=== PATIENT | male | born 1980 | race Caucasian/White ===

== ENCOUNTER → 2016-07-12 | Outpatient (CLI) | payer OTHER ==
--- NOTE | 2016-07-12 11:53 | DIAGNOSTIC IMAGING REPORT ---
CHEST 2 VIEWS ROUTINE CLINICAL HISTORY: Mid back pain on left side COMPARISON STUDY: 08/05/2011 FINDINGS: The cardiac and mediastinal contours are normal. There is no evidence of focal pulmonary consolidation. There is no evidence of failure. No pleural effusions are visualized.[ IMPRESSION: No active disease in the chest. Electronically signed by: Dharmesh Tidwell M.D. 07/12/2016 11:51 AM Dictated Date/Time: 07/12/2016 11:51 AM
[2016-07-12 14:42] LABS: HEMATOCRIT 44.2 % (42-52); MEAN CELL VOLUME 92.3 fL (80-100); MEAN CORPUSCULAR HEMOGLOBIN 31.1 pg (25-34); MEAN CORPUSCULAR HGB CONC 33.7 g/dl (32-36); MEAN PLATELET VOLUME 9.8 fL (7.4-10.4); PLATELET COUNT 222 K/uL (130-400); RED BLOOD COUNT 4.79 M/uL (4.7-6.1); WHITE BLOOD COUNT 7.61 K/uL (4.8-10.8)
[2016-07-12 14:47] LABS: URINE APPEARANCE CLEAR (CLEAR); URINE BILIRUBIN NEG (NEG); URINE COLOR YELLOW; URINE EPITHELIAL CELL AUTO 0-5 /lpf (0-5); URINE NITRITE NEG (NEG); URINE PH 5.5 (4.5-7.5); URINE SPECIFIC GRAVITY 1.028 (1.000-1.030); UROBILINOGEN NEG (NEG)
[2016-07-12 14:55] LABS: ALT/SGPT 46 U/L (12-78); AST/SGOT 24 U/L (15-37); BLOOD UREA NITROGEN 16 mg/dl (7-18); BUN/CREATININE RATIO 17.2 (10-20); CARBON DIOXIDE 30 mmol/L (21-32); CHLORIDE 105 mmol/L (98-107); CREATININE 0.92 mg/dl (0.60-1.40); GLUCOSE 106 mg/dl (70-99); POTASSIUM 4.4 mmol/L (3.5-5.1); SODIUM 139 mmol/L (136-145)
[2016-07-12 14:55] LABS: MANUAL MICROSCOPIC REQUIRED? NO; REVIEW REQ? NO
[2016-07-12 14:57] LABS: ALB/GLOB RATIO 1.2 (0.9-2); ALKALINE PHOSPHATASE 73 U/L (45-117)
== END | disposition home or self-care (01) ==
LOC: C.LABBC 11:23
PROVIDERS: ATTEND Internal Medicine
DX: M54.9 Dorsalgia, unspecified (principal)

== ENCOUNTER 2016-10-31 13:36 | Emergency (ER) | payer OTHER ==
[~2016-10-31] VITALS: Ht 193 cm; Wt 131.6 kg
[2016-10-31 13:39] VITALS: BP 140/73; PULSE 60; TEMP 36.7; O2SAT 100; Ht 193 cm; Wt 131.6 kg
[2016-10-31] MEDS ORDERED: XYLOCAINE 1%/SOD BICARB 20 ML VIAL INFIL ONE (13:57)
--- NOTE | 2016-10-31 14:35 | DIAGNOSTIC IMAGING REPORT ---
LEFT FINGER(S) MIN 2 VIEWS ROUTINE HISTORY: 36 years-old Male acute laceration of the left second digit. Follow-up exam. COMPARISON: Radiographs dated 08/25/2014. TECHNIQUE: 3 views of the left second digit. FINDINGS: There is a chronic bony defects noted involving the radial aspect of the second distal phalangeal tuft which is unchanged from comparison. No acute fracture or dislocation is identified. There is moderate soft tissue swelling of the second digit with focus of subcutaneous emphysema along the volar aspect of the finger adjacent to the PIP joint suggesting laceration. No underlying acute fracture or radiographic foreign body. Chronic 4 mm radiopaque foreign body is present within the soft tissues adjacent to the second metacarpophalangeal joint, also unchanged. IMPRESSION: 1. Soft tissue swelling and laceration of the second digit without fracture. 2. Chronic radiopaque foreign body adjacent to the second metacarpophalangeal joint, 4 mm. 3. Remote bony defect of the second distal flannel tuft. The above report was generated using voice recognition software. It may contain grammatical, syntax or spelling errors. Electronically signed by: David Castro M.D. 10/31/2016 2:34 PM Dictated Date/Time: 10/31/2016 2:31 PM
[2016-10-31] MEDS ORDERED: DIPHTHERIA/TETANUS/PERTUSSIS 0.5 ML SYR/VIAL IM. ONE (15:30)
--- NOTE | 2016-10-31 15:59 | EMERGENCY ROOM VISIT NOTE ---
ED Visit Note First contact with patient: 14:25 CHIEF COMPLAINT: Finger laceration HISTORY OF PRESENT ILLNESS: This 36-year-old male patient presents to the emergency department after cutting the left second finger on a piece of metal at work. The bleeding has stopped. Denies weakness or numbness of the finger. The patient has full range of motion of the fingers. The patient rates the pain as minimal and 2/10. The patient denies any other injuries. The patient's tetanus shot is not up to date. REVIEW OF SYSTEMS: A 6 system review of systems was completed with positives and pertinent negatives listed in the HPI. ALLERGIES: No known drug allergies MEDICATIONS: Reviewed with the patient PMH: None SOCIAL HISTORY: Smokes one pack of cigarettes per day. Occasional alcohol use. Employed PHYSICAL EXAM: Vital Signs: Reviewed Nurse's notes, vital signs stable. GENERAL : 36-year-old male. Appears older than stated age, in no acute distress, well developed, well nourished. SKIN: There is a 1.5 cm long laceration on the volar aspect of the left second finger. The edges gape apart with traction. There is no foreign material in the wound and it looks clean. There is no active bleeding. No deep structures such as tendons, bones, or significant blood vessels are seen in the base of the wound. Extension and flexion of the finger is full and strong. Full range of motion of the wrist and other fingers. Capillary refill less than 2 seconds. Normal sensation to light and sharp touch. EMERGENCY DEPARTMENT COURSE: I examined the patient. An x-ray was performed of the finger LEFT FINGER(S) MIN 2 VIEWS ROUTINE HISTORY: 36 years-old Male acute laceration of the left second digit. Follow-up exam. COMPARISON: Radiographs dated 08/25/2014. TECHNIQUE: 3 views of the left second digit. FINDINGS: There is a chronic bony defects noted involving the radial aspect of the second distal phalangeal tuft which is unchanged from comparison. No acute fracture or dislocation is identified. There is moderate soft tissue swelling of the second digit with focus of subcutaneous emphysema along the volar aspect of the finger adjacent to the PIP joint suggesting laceration. No underlying acute fracture or radiographic foreign body. Chronic 4 mm radiopaque foreign body is present within the soft tissues adjacent to the second metacarpophalangeal joint, also unchanged. IMPRESSION: 1. Soft tissue swelling and laceration of the second digit without fracture. 2. Chronic radiopaque foreign body adjacent to the second metacarpophalangeal joint, 4 mm. 3. Remote bony defect of the second distal flannel tuft. The above report was generated using voice recognition software. It may contain grammatical, syntax or spelling errors. Electronically signed by: David Castro M.D. 10/31/2016 2:34 PM Dictated Date/Time: 10/31/2016 2:31 PM The status of this report is Signed. Draft = Not yet reviewed or approved by Radiologist. Signed = Reviewed and approved by Radiologist. <AttendingPhy></AttendingPhy> <FamilyPhy>No Doctor, Assigned</FamilyPhy> < PrimaryPhy>No Doctor, Assigned</PrimaryPhy> <UnitNumber>[id number]</UnitNumber> <VisitNumber>[id number]</VisitNumber> <PatientName>BETH HILTON</ PatientName> <DateOfBirth>1980</DateOfBirth> <Location>[facility]</Location> < ServiceDate>10/31/16</ServiceDate> <MNE>ESINDI</MNE> <OrderingPhy>Keely Mehta PA-C</OrderingPhy> <OrderingPhyMNE>f rep ord dr damon</OrderingPhyMNE> < DictatingPhyMNE>f rep dict dr damon</DictatingPhyMNE> <CCListMNE>f rep ct marisol</ CCListMNE> <AdmittingPhyMNE>f pt admit dr damon</AdmittingPhyMNE> <AttendingPhyMNE >f pt attend dr damon</AttendingPhyMNE> <ConsultingPhyMNE>f pt consult dr damon</ConsultingPhyMNE> <FamilyPhyMNE>f pt fam dr damon</FamilyPhyMNE> <OtherPhyMNE>f pt other dr damon</OtherPhyMNE> < PrimaryPhyMNE>f pt prim care dr damon</PrimaryPhyMNE> <ReferringPhyMNE> Verbal consent was obtained to perform the procedure. Using sterile technique the wound was cleansed with Betadine. 5 ml of 1% buffered lidocaine was used to perform a digital block to anesthetize the patient. The area was sterilely draped. Once the patient was anesthetized, the wound was copiously irrigated under pressure with sterile saline. The wound was explored and there were no deep structures injured. The laceration was repaired using 4 simple interrupted 5-0 nylon sutures. The patient tolerated the procedure well. Hemostasis was achieved. The area was cleaned with sterile saline and dressed with bacitracin ointment and bandage. The patient was given a tetanus booster. The patient was discharged home in good condition. DIAGNOSIS: Finger laceration DISCHARGE INSTRUCTIONS & TREATMENT: Keep wound clean. It is okay to gently wash the area with soapy water. Do not submerse it in water for long periods of time such as swimming, going in hot tubs or taking baths until the sutures come out. Do not allow any crusting or dried blood to accumulate on sutures. If this occurs, use a 1:1 solution of hydrogen peroxide/water on a Q-tip to clean the wound. Use an antibiotic ointment for 3-4 days, then let wound dry. Suture removal in 14 days. Return sooner for any signs of infection ( increasing redness, swelling, drainage). Ice and elevate for swelling and pain. Ibuprofen 600 mg and Tylenol 1000 mg every 6 hrs for pain.
== END 2016-10-31 16:04 | disposition home or self-care (01) ==
LOC: C.EDB 13:38 → C.EDD 16:04
DX: S61.211A Laceration without foreign body of left index finger without damage to nail, initial encounter (principal); W45.8XXA Other foreign body or object entering through skin, initial encounter; Y92.89 Other specified places as the place of occurrence of the external cause; Y99.0 Civilian activity done for income or pay; F17.200 Nicotine dependence, unspecified, uncomplicated

== ENCOUNTER → 2017-01-30 | Outpatient (CLI) | payer OTHER ==
--- NOTE | 2017-01-30 09:36 | DIAGNOSTIC IMAGING REPORT ---
GI SERIES W/AIR ROUTINE CLINICAL HISTORY: REFLUXdysphagia COMPARISON STUDY: None FLUOROSCOPY TIME: 2.3 minutes. FINDINGS: Patient initiates swallowing function well. The esophagus is normal in course and caliber. Findings of mild gastroesophageal reflux. Duodenal bulb fills well. Duodenal sweep is unremarkable. IMPRESSION: Mild gastroesophageal reflux. Otherwise negative study. The above report was generated using voice recognition software. It may contain grammatical, syntax or spelling errors. Electronically signed by: Hermes Yun M.D. 01/30/2017 9:35 AM Dictated Date/Time: 01/30/2017 9:34 AM
== END | disposition home or self-care (01) ==
LOC: C.RAD 09:07
PROVIDERS: ATTEND Physician Assistant Medical
DX: K21.9 Gastro-esophageal reflux disease without esophagitis (principal)